=== PATIENT | female | born 1945 | race Caucasian/White ===

== ENCOUNTER → 2017-03-06 | Outpatient (CLI) | payer MEDICARE ==
[~2017-03-06] MED LIST: ALBU6.7H INH; AMLO5TAB2 PO; DILT60CA PO; GUAI200T3 PO; HYDR25TA6 PO; IPRA3AMP NPPB; IPRA4AER INH; LEVO500T33 PO; LOSA50TA2 PO; MONT10TA6 PO; POLY17PO5 PO; PRED20TA PO; PRED5TAB PO; [UNRECOGNIZED DRUG - OTHER]
== END | disposition home or self-care (01) ==
LOC: CFH 08:30
PROVIDERS: ATTEND Family Medicine
DX: Z13.820 Encounter for screening for osteoporosis (principal); N95.8 Other specified menopausal and perimenopausal disorders
CPT/HCPCS: 77080

== ENCOUNTER → 2017-08-17 | Outpatient (CLI) | payer MEDICARE ==
[~2017-08-17] MED LIST changes: -LEVO500T33 PO; +LEVO500T47 PO
== END | disposition home or self-care (01) ==
LOC: CFH 13:24
PROVIDERS: ATTEND Family Medicine
DX: N60.02 Solitary cyst of left breast (principal)
CPT/HCPCS: 77066

== ENCOUNTER 2017-10-28 03:07 | Emergency (ER) | payer MEDICARE ==
[~2017-10-28] VITALS: Ht 160 cm; Wt 93.8 kg
[2017-10-28 03:08] VITALS: BP 165/94
== END 2017-10-28 04:15 | disposition home or self-care (01) ==
LOC: ED 04:14
DX: J44.9 Chronic obstructive pulmonary disease, unspecified (principal); Z76.0 Encounter for issue of repeat prescription; I10 Essential (primary) hypertension; Z99.81 Dependence on supplemental oxygen
CPT/HCPCS: 99283

== ENCOUNTER 2018-05-01 16:17 | Emergency (ER) | payer MEDICARE ==
[~2018-05-01] VITALS: Ht 160 cm; Wt 98.0 kg
[~2018-05-01 16:17] MED LIST changes: -AMLO5TAB2 PO; +AMLO5TAB7 PO; -IPRA3AMP NPPB; +IPRA3AMP30 NPPB
[2018-05-01] MEDS ORDERED: ALBU8.5H8 INH (16:50)
[2018-05-01] MEDS ORDERED: AMLO5TAB4 PO (16:50)
[2018-05-01] MEDS ORDERED: OXYGEN (16:52)
[2018-05-01] MEDS ORDERED: ALBUTEROL/IPRATROPIUM 2.5MG/0.5MG, 3 ML ONE (17:25)
[2018-05-01] MEDS ORDERED: ALBUTEROL/IPRATROPIUM 2.5MG/0.5MG, 3 ML NPPB ONE (17:30)
[2018-05-01] MEDS: maalox/diphenh/lido/sucralfate 5 ML PO PRN ×2 (17:46→17:47)
[2018-05-01 17:49] VITALS: BP 154/86
== END 2018-05-01 18:48 | disposition home or self-care (01) ==
LOC: ED 18:10
DX: J02.9 Acute pharyngitis, unspecified (principal); J45.909 Unspecified asthma, uncomplicated; I10 Essential (primary) hypertension
CPT/HCPCS: 71046; 94640; 99284; J7512; J7620

== ENCOUNTER 2018-09-29 06:14 | Observation (INO) | payer MEDICARE ==
[~2018-09-29] VITALS: Ht 152.4 cm; Wt 94.7 kg
[~2018-09-29 06:14] MED LIST changes: +ALBU8.5H8 INH; +AMLO-150 PO; +AMLO5TAB4 PO; -AMLO5TAB7 PO; +OXYGEN
[2018-09-29] MEDS ORDERED: methylPREDNISolone SOD SUCC 125 MG/2 ML ONE (06:31)
--- NOTE | 2018-09-29 06:33 | NUR ---
PT C/O COUGH AND SORE THROAT X 3 WEEKS. 86% RA. PT STATES SHE WEARS 4L O2 AT HOME AT NIGHT.
[2018-09-29] MEDS ORDERED: ALBUTEROL/IPRATROPIUM 2.5MG/0.5MG, 3 ML ONE (06:41)
[2018-09-29] MEDS ORDERED: IPRA3AMP30 NPPB (06:52)
[2018-09-29] MEDS ORDERED: ALBUTEROL/IPRATROPIUM 2.5MG/0.5MG, 3 ML NPPB ONE (07:00)
[2018-09-29] MEDS ORDERED: SODIUM CHLORIDE FLUSH 10ML SYR IVF ONE (07:00)
[2018-09-29] MEDS ORDERED: methylPREDNISolone SOD SUCC 125 MG/2 ML IVP ONE (07:00)
--- NOTE | 2018-09-29 07:09 | NUR ---
REPORT FROM JOSE DAVID RAMIRES. PT RESTING ON GUREY. STATES SHE HAS RELIEF OF SOB AFTER BREATHING TREATMENT. AWAITING LAB RESULTS. ALL CONCERNS ADRESSED.
[2018-09-29 07:12] LABS: BASOPHILS # (AUTO) 0.03 x10^3/uL (0-0.1); BASOPHILS % (AUTO) 0 % (0-1); EOSINOPHILS # (AUTO) 0.02 x10^3/uL (0-0.4); EOSINOPHILS % (AUTO) 0 % (1-7); LYMPHOCYTES % (AUTO) 37 % (22-44); MD NO; MEAN CORPUSCULAR HEMOGLOBIN 31.1 pg (27.0-34.8); MEAN CORPUSCULAR HGB CONC 32.7 g/dL (32.4-35.8); MEAN PLATELET VOLUME 8.4 fL (7.4-10.4); MONOCYTES # (AUTO) 1.44 x10^3/uL (0.2-0.8); MONOCYTES % (AUTO) 16 % (2-9); NEUTROPHILS # (AUTO) 4.15 x10^3/uL (1.8-6.8); NEUTROPHILS % (AUTO) 46 % (42-75); PLATELET COUNT 274 x10^3/uL (130-400); RED BLOOD COUNT 5.45 x10^6/uL (3.82-5.3)
[2018-09-29 07:22] LABS: ALANINE AMINOTRANSFERASE 32 U/L (12-78); ALBUMIN 3.8 g/dL (3.4-5.0); ANION GAP 7 mmol/L (5-15); CALCIUM 8.8 mg/dL (8.5-10.1); CHLORIDE 102 mmol/L (98-107); CREATININE 1.15 mg/dL (0.55-1.02)
[2018-09-29 07:27] LABS: ALKALINE PHOSPHATASE 96 U/L (45-117); BILIRUBIN,TOTAL 0.5 mg/dL (0.2-1.0); TOTAL PROTEIN 7.8 g/dL (6.4-8.2); TROPONIN I < 0.015 ng/mL (0.000-0.045)
[2018-09-29] MEDS ORDERED: SODIUM CHLORIDE FLUSH 10ML SYR IVF PRN (08:00)
--- NOTE | 2018-09-29 08:29 | NUR ---
PT RESTING ON CARLEEN. ALYSON CONCERNS ADRESSED. AWAITING BED PLACEMENT FOR ADMIT.
[2018-09-29] MEDS ORDERED: ONDANSETRON ODT 4 MG PO PRN (08:30)
[2018-09-29] MEDS ORDERED: POLYETHYLENE GLYCOL 17 GM PACKET PO PRN (08:30)
[2018-09-29] MEDS ORDERED: morphine SULFATE 10 MG/ML, 1ML IVPush PRN (08:30)
[2018-09-29] MEDS ORDERED: LABETALOL 5MG/ML, 20ML IVPush PRN (08:30)
[2018-09-29] MEDS ORDERED: ONDANSETRON 2MG/ML, 2ML IVPush PRN (08:30)
--- NOTE | 2018-09-29 09:09 | NUR ---
PT HANDOFF REPORT OVER PHONE TO KEYLA BUNCH
[2018-09-29] MEDS ORDERED: FLUT12AE INH (09:50)
[2018-09-29 09:56] VITALS: BP 132/83
[2018-09-29] MEDS ORDERED: ENOXAPARIN 40 MG/0.4 ML SQ SCH (10:00)
[2018-09-29] MEDS ORDERED: ALBUTEROL/IPRATROPIUM 2.5MG/0.5MG, 3 ML NPPB PRN (10:00)
[2018-09-29] MEDS: SENNA/DOCUSATE TABLET PO SCH (10:11)
[2018-09-29] MEDS: methylPREDNISolone SOD SUCC 125 MG/2 ML IVPush SCH ×3 (10:11→22:10)
[2018-09-29] MEDS: PANTOPRAZOLE 40 MG IV IVPush SCH (10:11)
[2018-09-29] MEDS: MONTELUKAST 10 MG TABLET PO SCH ×2 (12:00→19:48)
[2018-09-29 14:33] VITALS: BP 130/74
[2018-09-29] MEDS ORDERED: TEMPLATE NON-FORMULARY MED. (Albuterol Sulfate (Proair Hfa) 1 PUFF) INH SCH (16:00)
[2018-09-29 19:37] VITALS: BP 137/77
[2018-09-29] MEDS: ALBUTEROL/IPRATROPIUM 2.5MG/0.5MG, 3 ML NPPB SCH (20:00)
[2018-09-29] MEDS ORDERED: TEMPLATE NON-FORMULARY MED. (Albuterol Sulfate (Proair Hfa) 1 PUFF) INH PRN (20:00)
[2018-09-29] MEDS ORDERED: TEMPLATE NON-FORMULARY MED. (Fluticasone Propionate (Flovent Hfa 110 Mcg/Inh) 1 PUFF) INH SCH (21:00)
[2018-09-29] MEDS ORDERED: TEMPLATE NON-FORMULARY MED. (Fluticasone Propionate (Flovent Hfa 110 Mcg/Inh) 1 PUFF) INH PRN (21:00)
[2018-09-30 01:57] VITALS: BP 129/75
[2018-09-30] MEDS: methylPREDNISolone SOD SUCC 125 MG/2 ML IVPush SCH ×4 (04:08→21:25)
[2018-09-30 04:42] LABS: BASOPHILS # (AUTO) 0.04 x10^3/uL (0-0.1); BASOPHILS % (AUTO) 0 % (0-1); EOSINOPHILS % (AUTO) 0 % (1-7); LYMPHOCYTES # (AUTO) 1.14 x10^3/uL (1-3.4); LYMPHOCYTES % (AUTO) 10 % (22-44); MD NO; MEAN CORPUSCULAR HEMOGLOBIN 31.8 pg (27.0-34.8); MEAN CORPUSCULAR HGB CONC 33.1 g/dL (32.4-35.8); MEAN CORPUSCULAR VOLUME 95.9 fL (80-100); MEAN PLATELET VOLUME 8.7 fL (7.4-10.4); MONOCYTES # (AUTO) 0.09 x10^3/uL (0.2-0.8); MONOCYTES % (AUTO) 1 % (2-9); NEUTROPHILS # (AUTO) 10.34 x10^3/uL (1.8-6.8); NEUTROPHILS % (AUTO) 89 % (42-75); PLATELET COUNT 266 x10^3/uL (130-400); RED BLOOD COUNT 5.54 x10^6/uL (3.82-5.3); RED CELL DISTRIBUTION WIDTH 13.9 % (9.6-15.2)
[2018-09-30 04:45] LABS: ALBUMIN 3.5 g/dL (3.4-5.0); ANION GAP 7 mmol/L (5-15); CALCIUM 8.9 mg/dL (8.5-10.1); CHLORIDE 102 mmol/L (98-107)
[2018-09-30 04:57] LABS: ALANINE AMINOTRANSFERASE 32 U/L (12-78); ALKALINE PHOSPHATASE 87 U/L (45-117); BILIRUBIN,TOTAL 0.5 mg/dL (0.2-1.0); CREATININE 1.34 mg/dL (0.55-1.02); THYROID STIMULATING HORMONE 0.444 mIU/L (0.358-3.740); TOTAL PROTEIN 7.6 g/dL (6.4-8.2)
[2018-09-30] MEDS: PANTOPRAZOLE 40 MG IV IVPush SCH (07:43)
[2018-09-30 07:50] VITALS: BP 146/88
[2018-09-30] MEDS: ALBUTEROL/IPRATROPIUM 2.5MG/0.5MG, 3 ML NPPB SCH ×2 (08:20→20:00)
[2018-09-30] MEDS ORDERED: SODIUM CHLORIDE 0.9% 1,000 ML IV SCH (08:30)
[2018-09-30] MEDS: AMLODIPINE 5 MG TABLET PO SCH (08:50)
[2018-09-30] MEDS: SENNA/DOCUSATE TABLET PO SCH (08:50)
[2018-09-30] MEDS ORDERED: ALBUTEROL/IPRATROPIUM 2.5MG/0.5MG, 3 ML NPPB SCH (09:00)
[2018-09-30] MEDS: ENOXAPARIN 30 MG/0.3 ML SQ SCH (09:43)
[2018-09-30 15:16] VITALS: BP 147/84
[2018-09-30 19:05] VITALS: BP 137/82
[2018-09-30] MEDS: MONTELUKAST 10 MG TABLET PO SCH (21:24)
[2018-10-01 01:55] VITALS: BP 128/77
[2018-10-01] MEDS: methylPREDNISolone SOD SUCC 125 MG/2 ML IVPush SCH ×2 (04:12→09:29)
[2018-10-01 05:58] LABS: MEAN CORPUSCULAR HGB CONC 33.6 g/dL (32.4-35.8); MEAN CORPUSCULAR VOLUME 95.4 fL (80-100); MEAN PLATELET VOLUME 8.9 fL (7.4-10.4); PLATELET COUNT 262 x10^3/uL (130-400); RED BLOOD COUNT 5.23 x10^6/uL (3.82-5.3); RED CELL DISTRIBUTION WIDTH 14.1 % (9.6-15.2)
[2018-10-01] MEDS ORDERED: PANTOPROZOLE 40MG TABLET PO SCH (06:00)
[2018-10-01 06:08] LABS: CHLORIDE 103 mmol/L (98-107)
[2018-10-01 06:19] LABS: BASOPHILS # (AUTO) 0.03 x10^3/uL (0-0.1); BASOPHILS % (AUTO) 0 % (0-1); EOSINOPHILS % (AUTO) 0 % (1-7); LYMPHOCYTES # (AUTO) 1.21 x10^3/uL (1-3.4); LYMPHOCYTES % (AUTO) 5 % (22-44); MD SCAN; MONOCYTES % (AUTO) 1 % (2-9); NEUTROPHILS # (AUTO) 20.98 x10^3/uL (1.8-6.8); NEUTROPHILS % (AUTO) 94 % (42-75)
[2018-10-01 06:31] LABS: ALANINE AMINOTRANSFERASE 32 U/L (12-78); ALBUMIN 3.6 g/dL (3.4-5.0); ALKALINE PHOSPHATASE 79 U/L (45-117); ANION GAP 8 mmol/L (5-15); BILIRUBIN,TOTAL 0.3 mg/dL (0.2-1.0); CALCIUM 9.1 mg/dL (8.5-10.1); CREATININE 1.39 mg/dL (0.55-1.02); TOTAL PROTEIN 7.6 g/dL (6.4-8.2)
[2018-10-01] MEDS: ALBUTEROL/IPRATROPIUM 2.5MG/0.5MG, 3 ML NPPB SCH (07:20)
[2018-10-01 07:34] VITALS: BP 147/75
[2018-10-01] MEDS: AMLODIPINE 5 MG TABLET PO SCH (08:47)
[2018-10-01] MEDS: SENNA/DOCUSATE TABLET PO SCH (08:47)
[2018-10-01] MEDS: ENOXAPARIN 30 MG/0.3 ML SQ SCH (09:30)
[2018-10-01] MEDS ORDERED: PRED10TA PO ×2 (11:58)
[2018-10-01] MEDS ORDERED: SODIUM CHLORIDE 0.9% 500 ML IV SCH (12:00)
[2018-10-01] MEDS ORDERED: TIOT18CA INH (12:21)
[2018-10-01] MEDS ORDERED: BUDE10.2 IH (12:21)
[2018-10-07] MEDS ORDERED: CLIN300C8 PO (13:44)
[2018-10-07] MEDS ORDERED: L.AC1CAP6 PO (13:44)
[2018-10-07] MEDS ORDERED: ASPI81TA45 PO (13:44)
[2018-10-07] MEDS ORDERED: ATOR40TA78 PO (13:44)
[2018-10-07] MEDS ORDERED: PRED10TA PO (13:48)
== END 2018-10-01 15:50 | disposition home or self-care (01) ==
LOC: ED 07:52 → INTOOBSV 08:00 → EDIP 08:00 → 3NW 09:20 → DCLOUNGE 10-01 15:01
PROVIDERS: ADMIT Hospitalist; ATTEND Hospitalist
DX: J96.01 Acute respiratory failure with hypoxia (principal); N17.9 Acute kidney failure, unspecified; E78.5 Hyperlipidemia, unspecified; I69.30 Unspecified sequelae of cerebral infarction; N18.2 Chronic kidney disease, stage 2 (mild); J44.1 Chronic obstructive pulmonary disease with (acute) exacerbation; I12.9 Hypertensive chronic kidney disease with stage 1 through stage 4 chronic kidney disease, or unspecified chronic kidney disease; Z88.0 Allergy status to penicillin; Z88.8 Allergy status to other drugs, medicaments and biological substances
CPT/HCPCS: 36415; 71045; 80053; 83605; 83735; 84100; 84145; 84439; 84443; 84484; 85025; 93005; 93306; 94640; 96374; 96375; 96376; 99285; C9113; G0378; J2930; J7030; J7620

== ENCOUNTER → 2018-10-31 | Outpatient (CLI) | payer MEDICARE ==
[~2018-10-31] MED LIST changes: +ASPI81TA45 PO; +ATOR40TA78 PO; +BUDE10.2 IH; +CLIN300C8 PO; +FLUT12AE INH; +L.AC1CAP6 PO; +PRED10TA PO; +TIOT18CA INH
== END | disposition home or self-care (01) ==
LOC: CFH 08:22
PROVIDERS: ATTEND Nurse Practitioner
DX: Z12.31 Encounter for screening mammogram for malignant neoplasm of breast (principal)
CPT/HCPCS: 77063; 77067

== ENCOUNTER 2019-09-06 11:46 | Observation (INO) | payer MEDICARE ==
[~2019-09-06] VITALS: Ht 160 cm; Wt 94.1 kg
[~2019-09-06 11:46] MED LIST changes: -ALBU6.7H INH; +ALBU6.7H8 INH; -GUAI200T3 PO; +GUAI200T37 PO
--- NOTE | 2019-09-06 11:50 | NUR ---
1145 ARRIVED TO ER VIA EMS. DR LE AT BEDSIDE. 1147 DR PAULINO AT BEDSIDE. EKG COMPLETED. PT PLACED ON MONITORS. PER REPORT PT HAD BEEN WALKING AROUND, FELT LIGHTHEADED BEGAN SWEATING, HAD LOWER ABD CRAMPING. UPON EMS ARRIVAL, FOUND PT TO BE IN JUNCTIONL TO SINUS RHYTHM AT 40. WAS GIVEN 1/2 AMP OF ATROPINE. PT THEN HAD ST ELEVATIONS IN LEADS 5-6. PT ARRIVED WITH 18G IV IN RAC. RECEIVED APPROX 450CC NS DIRECTOR CHECK.
[2019-09-06] MEDS ORDERED: ONDANSETRON 2MG/ML, 2ML ONE (11:51)
--- NOTE | 2019-09-06 11:53 | NUR ---
PT GIVEN 4MG ZOFRAN PER V/O FROM DR LE, R/T C/O NAUSEA.
[2019-09-06 12:06] LABS: BASOPHILS # (AUTO) 0.07 x10^3/uL (0-0.1); BASOPHILS % (AUTO) 1 % (0-1); EOSINOPHILS # (AUTO) 0.13 x10^3/uL (0-0.4); EOSINOPHILS % (AUTO) 2 % (1-7); LYMPHOCYTES # (AUTO) 2.47 x10^3/uL (1-3.4); LYMPHOCYTES % (AUTO) 32 % (22-44); MD NO; MEAN CORPUSCULAR HEMOGLOBIN 31.3 pg (27.0-34.8); MEAN CORPUSCULAR HGB CONC 33.1 g/dL (32.4-35.8); MEAN CORPUSCULAR VOLUME 94.5 fL (80-100); MEAN PLATELET VOLUME 7.8 fL (7.4-10.4); MONOCYTES # (AUTO) 0.58 x10^3/uL (0.2-0.8); MONOCYTES % (AUTO) 8 % (2-9); NEUTROPHILS # (AUTO) 4.39 x10^3/uL (1.8-6.8); NEUTROPHILS % (AUTO) 58 % (42-75); PLATELET COUNT 300 x10^3/uL (130-400); RED BLOOD COUNT 5.65 x10^6/uL (3.82-5.3)
[2019-09-06 12:15] LABS: INTERNATIONAL NORMALIZED RATIO 0.96 (0.93-1.1); PROTHROMBIN TIME 10.2 Seconds (9.6-11.5)
[2019-09-06 12:18] LABS: ALBUMIN 3.6 g/dL (3.4-5.0); ANION GAP 7 mmol/L (5-15); CALCIUM 9.1 mg/dL (8.5-10.1); CHLORIDE 105 mmol/L (98-107)
--- NOTE | 2019-09-06 12:18 | NUR ---
PT ASSISTED TO BSC. STEADY ON FEET. REMAINED IN SR PER MONITOR. PT ASKIING FOR PURSE TO GET HER PHONE TO CALL FAMILY. PROVIDED TO PT. PT WITH INTERMITTENT C/O ABD PAIN/CRAMPING. PT DENIES CP (NEVER HAD CP). PT UPDATED ON POC.
[2019-09-06 12:24] LABS: ALANINE AMINOTRANSFERASE 26 U/L (12-78); ALKALINE PHOSPHATASE 96 U/L (45-117); BILIRUBIN,TOTAL 0.7 mg/dL (0.2-1.0); CREATININE 1.28 mg/dL (0.55-1.02); TOTAL PROTEIN 7.6 g/dL (6.4-8.2); TROPONIN I 0.018 ng/mL (0.000-0.045)
[2019-09-06 12:30] LABS: T4 (THYROXINE) 10.1 mcg/dL (4.8-13.9)
--- NOTE | 2019-09-06 12:49 | NUR ---
REPORT RECIEVED FROM KEYLA ALSTON. CARE ASSUMED. PT MOVED FROM T4 TO ROOM 36, ON FULL MONITOR.
--- NOTE | 2019-09-06 12:51 | NUR ---
PT MOVED TO ROOM 36, ABLE TO STAND AND MOVE TO DIFFERENT GURNEY WITH SLIGHT "LIGHTHEADEDNESS" NO EKG CHANGE NOTED. SR PER MONITOR. REPORT TO JB RAMIRES.
[2019-09-06] MEDS ORDERED: ONDANSETRON 2MG/ML, 2ML IVPush ONE (13:00)
--- NOTE | 2019-09-06 13:26 | NUR ---
PT ASSISTED OUT OF PANTS PER REQUEST, AMBULATORY WITH STEADY GAIT TO RESTROOM. TAKEN TO CT WITH CORNETIST VIA WHEELCHAIR.
[2019-09-06] MEDS ORDERED: OMNIPAQUE 350 MG/ML, 100ML BOTTLE ONE (13:42)
--- NOTE | 2019-09-06 13:49 | NUR ---
PT BACK FROM CT.
--- NOTE | 2019-09-06 14:36 | NUR ---
[facility] AT BEDSIDE.
[2019-09-06] MEDS ORDERED: morphine SULFATE 10 MG/ML, 1ML IVPush PRN (15:00)
[2019-09-06] MEDS ORDERED: ACETAMINOPHEN 325 MG TABLET PO PRN (15:00)
[2019-09-06] MEDS ORDERED: ONDANSETRON ODT 4 MG PO PRN (15:00)
--- NOTE | 2019-09-06 15:25 | NUR ---
TASK RN: REPORT GIVEN TO KARYNA MANTILLA RN. ALL QUESTIONS ANSWERED. AWAITING PT TRANSPORT.
[2019-09-06 16:20] VITALS: BP 152/85
[2019-09-06] MEDS: ENOXAPARIN 40 MG/0.4 ML SQ SCH (16:47)
[2019-09-06] MEDS: SODIUM CHLORIDE 0.9% 1,000 ML IV SCH (16:47)
[2019-09-06] MEDS ORDERED: PANTOPRAZOLE 20MG TABLET PO ONE (17:00)
[2019-09-06 17:30] LABS: TROPONIN I < 0.015 ng/mL (0.000-0.045)
[2019-09-06 19:02] VITALS: BP 129/75
[2019-09-06 23:34] LABS: TROPONIN I < 0.015 ng/mL (0.000-0.045)
[2019-09-07 03:25] VITALS: BP 111/65
[2019-09-07] MEDS ORDERED: SODIUM CHLORIDE 0.9%, 500ML IVBOLUS ONE (04:00)
[2019-09-07 04:28] LABS: MEAN CORPUSCULAR HEMOGLOBIN 31.2 pg (27.0-34.8); MEAN CORPUSCULAR HGB CONC 32.8 g/dL (32.4-35.8); MEAN CORPUSCULAR VOLUME 95.3 fL (80-100); MEAN PLATELET VOLUME 7.9 fL (7.4-10.4); PLATELET COUNT 300 x10^3/uL (130-400); RED BLOOD COUNT 5.37 x10^6/uL (3.82-5.3); RED CELL DISTRIBUTION WIDTH 13.9 % (9.6-15.2)
[2019-09-07 04:32] LABS: ANION GAP 4 mmol/L (5-15); CALCIUM 8.4 mg/dL (8.5-10.1); CHLORIDE 105 mmol/L (98-107); CREATININE 1.11 mg/dL (0.55-1.02)
[2019-09-07 04:44] LABS: MD YES
[2019-09-07 04:45] VITALS: BP 117/73
[2019-09-07 04:46] LABS: <PLATELET ESTIMATE> ADEQUATE; <PLT MORPHOLOGY> NORMAL PLT MORPH; <RBC MORPHOLOGY> NORMAL; BAND#(MANUAL) 0.24 x10^3/uL; BANDS%(MANUAL) 2 % (0-7); LYMPH#(MANUAL) 1.53 x10^3/uL (1-3.4); LYMPHS% (MANUAL) 13 % (22-44); METAMYELOCYTES# (MANUAL) 0.12 x10^3/uL (0-0); METAMYELOCYTES% (MANUAL) 1 % (0-1); MONOS#(MANUAL) 0.94 x10^3/uL (0.3-2.7); MONOS% (MANUAL) 8 % (2-9); SEG#(MANUAL) 8.97 x10^3/uL (1.8-6.8); SEGS% (MANUAL) 76 % (42-75)
[2019-09-07] MEDS ORDERED: PANTOPRAZOLE 40MG TABLET PO SCH (06:00)
[2019-09-07] MEDS: SODIUM CHLORIDE 0.9% 1,000 ML IV SCH ×2 (06:03→23:30)
[2019-09-07 06:39] VITALS: BP 121/71
[2019-09-07] MEDS: AMLODIPINE 5 MG TABLET PO SCH (09:00)
[2019-09-07] MEDS: ASPIRIN 81 MG TABLET EC PO SCH (09:00)
[2019-09-07] MEDS: MONTELUKAST 10 MG TABLET PO SCH (09:25)
[2019-09-07] MEDS ORDERED: ALBUTEROL/IPRATROPIUM 2.5MG/0.5MG, 3 ML NPPB PRN (12:00)
[2019-09-07 12:56] VITALS: BP 113/72
[2019-09-07] MEDS: PANTOPRAZOLE 40 MG IV IVPush SCH ×2 (13:09→23:59)
[2019-09-07] MEDS: METRONIDAZOLE PMX 500MG/100ML 100 ML IV SCH ×2 (13:09→20:08)
[2019-09-07] MEDS: SULFAMETH./TRIMETHOPRIM DS 800MG/160MG TABLET PO SCH ×2 (13:09→20:08)
[2019-09-07] MEDS: ENOXAPARIN 40 MG/0.4 ML SQ SCH (17:00)
[2019-09-07 18:37] VITALS: BP 121/74
[2019-09-08 02:09] VITALS: BP 119/74
[2019-09-08] MEDS: METRONIDAZOLE PMX 500MG/100ML 100 ML IV SCH ×2 (03:38→11:16)
[2019-09-08 05:02] LABS: ANION GAP 5 mmol/L (5-15); CALCIUM 8.4 mg/dL (8.5-10.1); CHLORIDE 106 mmol/L (98-107)
[2019-09-08 05:05] LABS: BASOPHILS # (AUTO) 0.04 x10^3/uL (0-0.1); BASOPHILS % (AUTO) 1 % (0-1); CHOL/HDL RATIO 3.1; CHOLESTEROL, TOTAL 138 mg/dL (140-239); CREATININE 1.17 mg/dL (0.55-1.02); EOSINOPHILS # (AUTO) 0.08 x10^3/uL (0-0.4); EOSINOPHILS % (AUTO) 1 % (1-7); HDL CHOL % 33 % (28-40); HDL CHOLESTEROL (DIRECT) 45 mg/dL (40-60); LDL CHOLESTEROL,CALCULATED 82 mg/dL (54-169); LYMPHOCYTES # (AUTO) 2.28 x10^3/uL (1-3.4); LYMPHOCYTES % (AUTO) 24 % (22-44); MD NO; MEAN CORPUSCULAR HEMOGLOBIN 32.1 pg (27.0-34.8); MEAN CORPUSCULAR HGB CONC 33.3 g/dL (32.4-35.8); MEAN CORPUSCULAR VOLUME 96.6 fL (80-100); MEAN PLATELET VOLUME 7.7 fL (7.4-10.4); MONOCYTES # (AUTO) 0.92 x10^3/uL (0.2-0.8); MONOCYTES % (AUTO) 10 % (2-9); NEUTROPHILS # (AUTO) 6.36 x10^3/uL (1.8-6.8); NEUTROPHILS % (AUTO) 66 % (42-75); PLATELET COUNT 265 x10^3/uL (130-400); RED BLOOD COUNT 4.91 x10^6/uL (3.82-5.3); TRIGLYCERIDES 53 mg/dL (50-200); VLDL CHOLESTEROL 11 mg/dL (0-25)
[2019-09-08 05:06] LABS: LDL/HDL RATIO 1.8 (0.5-3.0)
[2019-09-08 07:02] VITALS: BP 114/69
[2019-09-08] MEDS ORDERED: BUDESONIDE 0.5 MG/2 ML INHA INH SCH (09:00)
[2019-09-08] MEDS ORDERED: ENOXAPARIN 40 MG/0.4 ML SQ SCH (09:00)
[2019-09-08] MEDS: AMLODIPINE 5 MG TABLET PO SCH (09:09)
[2019-09-08] MEDS: ASPIRIN 81 MG TABLET EC PO SCH (09:10)
[2019-09-08] MEDS: MONTELUKAST 10 MG TABLET PO SCH (09:10)
[2019-09-08] MEDS: SULFAMETH./TRIMETHOPRIM DS 800MG/160MG TABLET PO SCH (09:10)
[2019-09-08] MEDS: PANTOPRAZOLE 40 MG IV IVPush SCH (11:16)
[2019-09-08] MEDS: SODIUM CHLORIDE 0.9% 1,000 ML IV SCH (12:50)
[2019-09-08 12:54] VITALS: BP 106/63
[2019-09-08] MEDS ORDERED: PANT40TA3 PO (15:39)
[2019-09-08] MEDS ORDERED: METR500T PO (15:39)
[2019-09-08] MEDS ORDERED: SULF1TAB24 PO (15:39)
[2019-09-08] MEDS ORDERED: PRED20TA PO (15:39)
[2019-09-08] MEDS ORDERED: ALBUTEROL/IPRATROPIUM 2.5MG/0.5MG, 3 ML NPPB SCH (16:00)
[2019-09-09] MEDS ORDERED: PANTOPRAZOLE 40MG TABLET PO SCH (06:00)
== END 2019-09-08 18:25 | disposition home or self-care (01) ==
LOC: ED 14:43 → EDIP 15:38 → INTOOBSV 15:38 → 5SO 15:45
PROVIDERS: ADMIT Internal Medicine Infectious Disease; ATTEND Hospitalist
DX: K58.9 Irritable bowel syndrome, unspecified (principal); J96.21 Acute and chronic respiratory failure with hypoxia; R42 Dizziness and giddiness; I50.30 Unspecified diastolic (congestive) heart failure; J44.1 Chronic obstructive pulmonary disease with (acute) exacerbation; J98.11 Atelectasis; D75.1 Secondary polycythemia; E07.81 Sick-euthyroid syndrome; D72.829 Elevated white blood cell count, unspecified; I11.0 Hypertensive heart disease with heart failure; G47.33 Obstructive sleep apnea (adult) (pediatric); K21.9 Gastro-esophageal reflux disease without esophagitis; K44.9 Diaphragmatic hernia without obstruction or gangrene; Z87.891 Personal history of nicotine dependence; Z88.0 Allergy status to penicillin; Z79.899 Other long term (current) drug therapy; Z79.82 Long term (current) use of aspirin; R09.02 Hypoxemia
CPT/HCPCS: 36415; 71045; 74177; 74240; 80048; 80053; 80061; 83690; 83735; 83880; 84100; 84436; 84443; 84484; 85014; 85018; 85025; 85610; 85730; 93005; 93306; 94640; 96361; 96365; 96366; 96375; 96376; 99285; C9113; G0378; J2405; J7030; J7040; J7512; J7626; Q9967; 96374

== ENCOUNTER → 2019-10-06 | Outpatient (CLI) | payer MEDICARE ==
[~2019-10-06] MED LIST changes: +METR500T PO; +OMNIPAQUE 350 MG/ML, 100ML BOTTLE ONE; +PANT40TA3 PO; +SULF1TAB24 PO
== END | disposition home or self-care (01) ==
LOC: CFH 13:10
PROVIDERS: ATTEND Family Medicine
DX: K31.89 Other diseases of stomach and duodenum (principal); K66.8 Other specified disorders of peritoneum; J84.10 Pulmonary fibrosis, unspecified
CPT/HCPCS: 74160; Q9967

== ENCOUNTER 2019-10-12 17:03 | Emergency (ER) | payer MEDICARE ==
[~2019-10-12] VITALS: Ht 160 cm; Wt 88.3 kg
[~2019-10-12 17:03] MED LIST changes: -OMNIPAQUE 350 MG/ML, 100ML BOTTLE ONE
[2019-10-12] MEDS ORDERED: ONDANSETRON 2MG/ML, 2ML IVPush ONE (18:30)
[2019-10-12] MEDS ORDERED: MORPHINE SULFATE 4 MG/ML, 1ML IVPush PRN (18:30)
[2019-10-12] MEDS ORDERED: SODIUM CHLORIDE 0.9% 1,000ML IVBOLUS ONE (18:30)
[2019-10-12 18:38] LABS: BASOPHILS # (AUTO) 0.03 x10^3/uL (0-0.1); BASOPHILS % (AUTO) 0 % (0-1); EOSINOPHILS # (AUTO) 0.07 x10^3/uL (0-0.4); EOSINOPHILS % (AUTO) 1 % (1-7); LYMPHOCYTES # (AUTO) 2.04 x10^3/uL (1-3.4); LYMPHOCYTES % (AUTO) 27 % (22-44); MD NO; MEAN CORPUSCULAR HEMOGLOBIN 31.4 pg (27.0-34.8); MEAN CORPUSCULAR HGB CONC 33.2 g/dL (32.4-35.8); MEAN CORPUSCULAR VOLUME 94.4 fL (80-100); MEAN PLATELET VOLUME 8.4 fL (7.4-10.4); MONOCYTES # (AUTO) 0.72 x10^3/uL (0.2-0.8); MONOCYTES % (AUTO) 10 % (2-9); NEUTROPHILS # (AUTO) 4.62 x10^3/uL (1.8-6.8); NEUTROPHILS % (AUTO) 62 % (42-75); PLATELET COUNT 290 x10^3/uL (130-400)
[2019-10-12 18:50] LABS: ALANINE AMINOTRANSFERASE 35 U/L (12-78); ALBUMIN 3.7 g/dL (3.4-5.0); ANION GAP 7 mmol/L (5-15); CALCIUM 9.4 mg/dL (8.5-10.1); CHLORIDE 102 mmol/L (98-107); CREATININE 0.97 mg/dL (0.55-1.02)
[2019-10-12 18:52] LABS: ALKALINE PHOSPHATASE 95 U/L (45-117); BILIRUBIN,TOTAL 0.4 mg/dL (0.2-1.0); TOTAL PROTEIN 7.8 g/dL (6.4-8.2)
[2019-10-12] MEDS ORDERED: ONDANSETRON 2MG/ML, 2ML ONE ×2 (18:54)
[2019-10-12] MEDS ORDERED: OMNIPAQUE 350 MG/ML, 100ML BOTTLE ONE (19:00)
[2019-10-12 19:43] VITALS: BP 158/80
== END 2019-10-12 21:16 | disposition home or self-care (01) ==
LOC: ED 18:55
DX: K46.0 Unspecified abdominal hernia with obstruction, without gangrene (principal); R19.7 Diarrhea, unspecified; I10 Essential (primary) hypertension; J44.9 Chronic obstructive pulmonary disease, unspecified; Z86.39 Personal history of other endocrine, nutritional and metabolic disease; Z87.891 Personal history of nicotine dependence
CPT/HCPCS: 36415; 71045; 74177; 80053; 83605; 83690; 85025; 93005; 96361; 96374; 96375; 99285; J2270; J2405; J7030; Q9967

== ENCOUNTER → 2019-12-23 | Outpatient (CLI) | payer MEDICARE | END | disposition home or self-care (01) | LOC: CFH 08:17 | PROVIDERS: ATTEND Nurse Practitioner | DX: Z12.31 Encounter for screening mammogram for malignant neoplasm of breast (principal); M81.0 Age-related osteoporosis without current pathological fracture; N95.8 Other specified menopausal and perimenopausal disorders; M85.9 Disorder of bone density and structure, unspecified | CPT/HCPCS: 77063; 77067; 77080 ==

== ENCOUNTER → 2021-02-08 | Outpatient (CLI) | payer MEDICARE ==
[~2021-02-08] MED LIST changes: -CLIN300C8 PO; +CLIN300C9 PO; +SULF-23 PO; -SULF1TAB24 PO
== END | disposition home or self-care (01) ==
LOC: CFH 08:56
PROVIDERS: ATTEND Nurse Practitioner
DX: Z12.31 Encounter for screening mammogram for malignant neoplasm of breast (principal)
CPT/HCPCS: 77063; 77067